=== PATIENT | male | born 1980 | race Caucasian/White ===

== ENCOUNTER 2016-12-10 01:50 | Emergency (ER) | payer SELFPAY ==
--- NOTE | 2016-12-10 05:14 | PDOC ---
General Adult HPI - General Chief Complaint: General Medical Stated Complaint: CLEAR FOR CONFINEMENT/REFUSED TO PBT Date Seen by Provider: 12/09/16 Time Seen by Provider: 02:20 Source: POSITIVE: Patient, Police Exam Limitations: POSITIVE: No limitations Nurse's Notes Reviewed & Considered: Yes - History of Present Illness Initial Comment: The patient is brought to the emergency room by police officers for medical evaluation prior to confinement at the [facility]. Patient was arrested by police officers today. Patient knowledges he was drinking heavily. He acknowledges he has history of chronic alcohol abuse. He denies any other contributory medical history. Patient was initially very uncooperative with police officers and medical staff, but then he became more cooperative. Patient denies any head , chest or abdominal pain. No focal neurologic symptoms. No GI or symptoms. No rashes or skin changes. Have you received a tetanus shot in the past 10 years?: Unknown Body Location Affected: REPORTS: Other (Alcoholic intoxication.) Timing: REPORTS: Other (Has been drinking alcohol heavily today.) Duration: >24 hours Severity: Moderate Quality: REPORTS: Other (Patient denies any pain anywhere) Context: REPORTS: None Modifying Factors: improves with: Nothing Similar Symptoms Previously: Yes Recent Care Received: REPORTS: Denies Any Prior Injuries Related to Current Complaint?: No Past Medical History - heen HEENT History: Denies History Cardiovascular History: Denies History Respiratory History: Denies History Gastrointestinal History: Denies History Genitourinary History: Denies History Endocrine History: Denies History Musculoskeletal History: Denies History Prosthesis or Implant: No Neurological History: Denies History Blood Disorders: Denies History Psychiatric History: Denies History History of Sexually Transmitted Diseases: No Male Reproductive History: Denies History Cancer History: Denies History In Past Year Been Physically Harmed or Verbally Threatened: No History of MDRO: No History of Other Communicable Diseases: No Alcohol Use: Heavy Substance Use Type: None Previous Hospitalizations: No Past Medical History Reviewed: Reviewed - No Changes ROS - Limitations ROS Limitations: No Limitations Constitution: REPORTS: Denies Symptoms Cardiovascular: REPORTS: Denies Cardiac Symptoms Respiratory: REPORTS: Denies Resp Symptoms Neurological: REPORTS: Denies Neuro Symptoms Gastrointestinal: REPORTS: Denies GI Symptoms Endocrine: REPORTS: Denies Symptoms Musculoskeletal: REPORTS: Denies MS Symptoms Genitourinary: REPORTS: Denies Symptoms Eyes: REPORTS: Denies Symptoms ENT: REPORTS: Denies Symptoms Skin: REPORTS: Denies Skin Symptoms Lympathic: REPORTS: Denies Lympathic Symptoms Immunologic: POSITIVE: Denies Symptoms Psychiatric: POSITIVE: Denies Psych Symptoms General Adult Exam - General Appearance General Appearance: POSITIVE: Alert, Cooperative, No Acute Distress, No Evidence of Trauma, Other (Smells heavily of alcohol) - HEENT HEENT: POSITIVE: Head Inspection Nml, Eyes Inspection Nml, Ears Inspection Nml, Nose Inspection Nml, Oral/Dental Inspect. Nml, Pharynx Inspect. Nml, PERRL, EOMI - Pupils Pupil Size: 4 mm: Bilateral (PERRLA) - Neck Neck: POSITIVE: Normal Inspection, Thyroid Normal - Respiratory Respiratory: POSITIVE: No Respiratory Distress, Breath Sounds Normal, Chest Non- Tender - Cardiovascular Cardiovascular: POSITIVE: Regular Rate & Rhythm, No Murmur, No Gallop, PMI Normal Peripheral Pulses: Radial (R): 2+, Radial (L): 2+ - Abdomen Abdomen: Soft: (All Quadrants), Normal Bowel Sounds: (All Quadrants), Denies Tenderness: (All Quadrants), No Splenomegaly: (All Quadrants), No Hepatomegaly: (All Quadrants), No Guarding: (All Quadrants), No Rebound: (All Quadrants), No Palpable Pulse: (All Quadrants), No Palpabale Mass: (All Quadrants), No Distention: (All Quadrants), No Rigidity: (All Quadrants) - Back Back: POSITIVE: Normal Inspection - Skin Skin: POSITIVE: Normal Color, Warm, Dry, No Rash - Extremities Extremity: Non-Tender: (All Extremities), Normal ROM: (All Extremities), Normal Inspection: (All Extremities) - Neurological / Psychological Neurological: POSITIVE: Oriented X3, malter operator Normal As Tested, Motor Normal, Sensation Normal, 5, 6 General Adult Progress - Patient's Progress Pain Medication Addressed: POSITIVE: Not Applicable School/Work Release Addressed: POSITIVE: Not Applicable Re-Examine Time: 03:20 Status: POSITIVE: Unchanged Antibiotics Given: No - Consult Counseled: POSITIVE: Patient, RE: DX, RE: Need for F/U Patient Care Time - Estimated PCT Patient Care Time (In Minutes): 20 Vital Signs - Recent Vital Signs Vital Signs: Blood pressure 121/90, heart rate 85 for minute, respiratory rate 16/m, temperature 90.6F, oxygen saturation on room air 97%, - VS Reviewed Vital Signs Reviewed: Yes Discharge Clinical Impression: Alcoholic intoxication Discharge Disposition: Discharged to Home Condition: Stable Patient Instructions Given at Discharge: Abuse of Alcohol (ED) Additional Instructions: avoid alcohol. Return as necessary Follow Up With: NONE,NONE [Primary Care Provider] - (Alcohol. Follow-up with your primary care provider. Return as necessary.)
[2016-12-10 07:01] VITALS: RESP 16; TEMP 97.6
== END 2016-12-10 03:25 ==
LOC: ER 01:50
DX: F10.129 Alcohol abuse with intoxication, unspecified (principal)
CPT/HCPCS: 99282